=== PATIENT | female | born 1945 | race Caucasian/White ===

== ENCOUNTER 2020-04-06 10:48 | Outpatient (CLI) | payer MEDICARE ==
[2020-04-06 18:24] LABS: SARS-CoV-2 MS2 Positive; SARS-CoV-2 N Gene Negative; SARS-CoV-2 S Gene Negative; SARS-CoV-2 by NAA Not Detected (NotDetected); SARS-CoV-2 orf1ab Negative
== END 2020-04-06 10:49 | disposition home or self-care (01) ==
LOC: LABBT 10:48
PROVIDERS: ATTEND Internal Medicine
DX: Z20.822 Contact with and (suspected) exposure to COVID-19 (principal)
CPT/HCPCS: 87635; U0003

== ENCOUNTER 2020-04-09 10:30 | Outpatient (CLI) | payer MEDICARE ==
--- NOTE | 2020-04-09 11:33 | RAD ---
Esophagram single column with tablet Modified barium swallow HISTORY: Dysphagia. Feeding difficulties. FINDINGS: Modified barium swallow exam performed in conjunction with speech pathology with multiple c onsistencies. Video review is available and demonstrates good bolus formation, retropulsion, and initiation of swallowing. No evidence of penetration or aspiration. Mild osteophytosis of the lower cervical spine evident with out obstruction of contrast. Remainder of the esophagus was evaluated with patient upright and prone. Good esophageal motility. Sm all sliding hiatal hernia. While the lower esophageal sphincter does appear to narrow the lumen, there was no holdup of a 12 mm barium tablet. No significant reflux was demonstrated with patient supine. IMPRESSION : Small sliding hiatal hernia. No significant reflux evident. No esophageal obstruction. Please see separate detailed report from speech pathology regarding modified barium swallow results.
== END 2020-04-09 10:31 | disposition home or self-care (01) ==
LOC: RAD 10:30
DX: R13.14 Dysphagia, pharyngoesophageal phase (principal); K21.9 Gastro-esophageal reflux disease without esophagitis; K44.9 Diaphragmatic hernia without obstruction or gangrene
CPT/HCPCS: 74230